=== PATIENT | female | born 1985 | race Hispanic/Latino ===

== ENCOUNTER 2019-10-17 05:46 | Inpatient (IN) ==
[2019-10-17] MEDS ORDERED: LR 2,000 ML ONE (06:28)
[2019-10-17] MEDS ORDERED: LR 500 ML IV ONE (06:33)
[2019-10-17] MEDS ORDERED: KEFZOL 1 GM/D5W 1 GM/50 ML IVPB IV PRN (06:33)
[2019-10-17] MEDS ORDERED: REGLAN PO ONE (06:33)
[2019-10-17] MEDS ORDERED: PEPCID PO ONE (06:33)
[2019-10-17] MEDS ORDERED: LR 1,000 ML IV SCH (06:45)
[2019-10-17 06:54] LABS: URINE SOURCE VOIDED
[2019-10-17 07:04] LABS: BILIRUBIN URINE NEGATIVE (NEGATIVE); BLOOD URINE MODERATE (NEGATIVE); COLOR STRAW; GLUCOSE URINE NEGATIVE (NEGATIVE); KETONE URINE NEGATIVE (NEGATIVE); LEUKOCYTES URINE MODERATE (NEGATIVE); NITRITE URINE NEGATIVE (NEGATIVE); PROTEIN URINE TRACE mg/dL (NEGATIVE); SP GRAVITY URINE 1.003; TURBIDITY URINE HAZY (CLEAR); UROBILINOGEN URINE NORMAL (NORMAL)
[2019-10-17 07:06] LABS: BASO# 0.01 X1000 (0.0-0.2); BASO% 0.1 % (0.0-0.8); EOS% 1.8 % (0.0-10.0); HEMATOCRIT 35.9 % (37.0-47.0); HEMOGLOBIN 11.6 g/dL (12.0-16.0); IMM GRAN# 0.08 X1000 (0.0-0.04); IMM GRAN% 0.7 % (0.0-0.5); LYMPH# 2.35 X1000 (1.2-3.4); LYMPH% 21.6 % (20.5-51.1); MCH 26.8 PG (27-31); MCHC 32.3 g/dL (33-37); MCV 82.9 FL (81-99); MONO# 0.75 X1000 (0.11-0.59); MONO% 6.9 % (1.7-9.3); MPV 11.5 FL (7.4-10.4); NEUT% 68.9 % (42.2-75.2); PLT 271 X1000 (130-400); RBC 4.33 XMIL (4.2-5.4); RDW 14.4 % (11.5-14.5); WBC 10.89 X1000 (4.8-10.8)
[2019-10-17] MEDS ORDERED: PITOCIN ONE (07:25)
[2019-10-17] MEDS ORDERED: SODIUM CHLORIDE 0.9% 10 ML ONE (07:26)
[2019-10-17] MEDS ORDERED: ROBINUL ONE (07:26)
[2019-10-17] MEDS ORDERED: NEO-SYNEPHRINE ONE (07:26)
[2019-10-17] MEDS ORDERED: CALCIUM CHLORIDE SYRINGE ONE (07:32)
[2019-10-17] MEDS ORDERED: EPHEDRINE ONE (07:32)
[2019-10-17] MEDS ORDERED: DEMEROL ONE ×2 (07:34→09:08)
--- NOTE | 2019-10-17 08:23 | HISTORY AND PHYSICAL ---
Laurel is a 34-year-old Peruvian speaking female who presents to the Labor and Delivery Unit as a 4, para 3-0-0-3. Her estimated date of confinement is October 30, 2019. She presents with an intrauterine of 38 and 1/7ths weeks gestation. She admits to spontaneous rupture of membranes with clear fluid at 0515 hours this morning and therefore presented to the Labor and Delivery Unit. Upon her presentation, she was examined by the nurse and she was noted to be breech. I was contacted and presented to the patient's room and performed a bedside ultrasound which identified a riley in a breech presentation. I performed an additional examination and noted the patient to have a fetus that was in an incomplete breech presentation. The patient was informed of the need for a surgical delivery. The benefits and risks were discussed with her understanding. The patient desires a tubal sterilization and has [employer] insurance per the nursing staff and therefore, a bilateral tubal sterilization can be performed. REVIEW OF SYSTEMS: : Significant for spontaneous rupture of membranes, cervical dilation is at 9 cm with the presentation of a lower extremity inside the vagina. The amniotic fluid is clear. PHYSICAL EXAMINATION: HEENT: Within normal limits. HEART: Regular rhythm and rate without murmur. LUNGS: Clear to auscultation bilaterally. ABDOMEN: Gravid, nontender. heart rate category 1, positive contractions. GENITOURINARY: Significant for cervical dilation of 8-9 cm with a lower extremity of the fetus inside the vagina. Amniotic fluid is clear. heart rate category 1. EXTREMITIES: Without cyanosis, clubbing or edema. LABORATORY RESULTS: From record, blood type is A negative and patient has received her RhoGAM injection. ASSESSMENT: 1. Intrauterine at 38 and 1/7ths weeks gestation. 2. Incomplete breech presentation. 3. Spontaneous rupture of membranes with clear fluid at 0515 this morning. 4. No significant medical history. 5. History of an appendectomy. 6. Desire for tubal sterilization. PLAN: 1. Patient will be prepared for a primary section. 2. IV. 3. Labs have been drawn. 4. The patient will be taken to the OR expediently. CC: Dr. Talha VERNON
[2019-10-17] MEDS ORDERED: PHENERGAN IV PRN (09:30)
[2019-10-17] MEDS ORDERED: NARCAN IV PRN (09:30)
[2019-10-17] MEDS ORDERED: ZOFRAN IV PRN (09:30)
[2019-10-17] MEDS ORDERED: SODIUM CHLORIDE 0.9% INJ PRN (09:30)
[2019-10-17] MEDS ORDERED: BENADRYL IV PRN (09:30)
[2019-10-17] MEDS ORDERED: MORPHINE PCA IV PRN (09:30)
[2019-10-17] MEDS ORDERED: PITOCIN 20 UNITS/NS 20 UNITS/1,000 ML IV.SOLN ONE (09:42)
[2019-10-17] MEDS ORDERED: M-M-R II VACCINE SUBQ ONE (09:48)
[2019-10-17] MEDS ORDERED: MYLICON PO PRN (09:48)
[2019-10-17] MEDS ORDERED: PHENERGAN IM PRN (09:48)
[2019-10-17] MEDS ORDERED: BOOSTRIX VACCINE IM ONE (09:48)
[2019-10-17] MEDS ORDERED: ATARAX PO PRN (09:48)
[2019-10-17] MEDS ORDERED: PITOCIN IM PRN (09:48)
[2019-10-17] MEDS ORDERED: HYDROXYZINE IM PRN (09:48)
[2019-10-17] MEDS ORDERED: PITOCIN 20 UNITS/NS 20 UNITS/1,000 ML IV.SOLN IV ONE (09:48)
[2019-10-17] MEDS ORDERED: DULCOLAX PR PRN (09:48)
[2019-10-17] MEDS ORDERED: PITOCIN 10 UNITS/NS 1,000 ML IV SCH (10:00)
[2019-10-17] MEDS: TORADOL IV SCH ×3 (10:30→23:43)
--- NOTE | 2019-10-17 14:40 | OPERATIVE NOTE ---
PROCEDURE DATE : 10/17/2019 PREOPERATIVE DIAGNOSES: 1. Intrauterine at 38 and 0/7ths weeks gestation. 2. Spontaneous rupture of membranes (clear). 3. Active labor. 4. Incomplete breech presentation. 5. Desire for permanent sterilization. 6. RH negative. POSTOPERATIVE DIAGNOSES: 1. Intrauterine at 38 and 0/7ths weeks gestation. 2. Spontaneous rupture of membranes (clear). 3. Active labor. 4. Beverly breech presentation. 5. Desire for permanent sterilization. 6. RH negative. PROCEDURE: 1. Primary low transverse section, 2. Delivery of a viable female in the beverly breech presentation. 3. Bilateral partial salpingectomy. SURGEON: Stefanie Zhong D.O. INSPECTOR RECEIVING: Everette Castle D.O. ANESTHESIA PROVIDER: Dr. Cartagena. COMPLICATIONS: None. FLUIDS: 2,000 mL. ESTIMATED BLOOD LOSS: 1000 mL. URINARY OUTPUT: 350 mL (clear). FLUIDS: Lactated Ringer's. MEDICATIONS: Ancef IV 2 grams preop. SPECIMENS: 1. Umbilical cord blood. 2. Portions of the left and right fallopian tubes. DRAINS: Felix catheter. INFORMATION: Viable female, beverly breech position. Time of delivery 0730 hours. scores 8 at one minute and 9 at fives minutes. Weight 6 pounds 14 ounces (3,110 grams). Length 19.5 inches. FINDINGS: Normal uterus, fallopian tubes and ovaries. INDICATIONS: Marco is a 34-year-old Occitan speaking female who presented to the Labor and Delivery Unit as a 4, para 3-0-0-3. Her estimated date of confinement is October 30, 2019. She presented with an intrauterine gestation at 38 and 0/7ths weeks gestation after rupturing her membranes at 05:15 hours on the morning of her presentation. The patient underwent a bedside ultrasound which identified the fetus in an incomplete breech presentation. This was confirmed during additional examination. The patient was informed of the need for a surgical delivery by section. The benefits of delivery were discussed and the risks were discussed which include but are not limited to the following: Blood loss, injury to surrounding organs, blood vessels and the fetus. The need for a blood transfusion and the associated risks of a transmission of an infection that may include hepatitis B and C, HIV, syphilis and other infections. Cardiopulmonary symptoms secondary to fluid overload and is included on the consent form. The patient and her spouse are aware that although risks are associated with the procedure, she may not experience any untoward effects from the procedure. The patient understood her risks. The patient expressed her desire for a tubal sterilization. She states that she does not nor her desire additional children. They are aware that upon receiving a tubal sterilization, it will be difficult for her to achieve a future unless done by artificial means. The patient was taken to the operating room where a spinal anesthetic was performed and found to be adequate. The patient received 2 grams of Ancef for infection prophylaxis. She was prepared and draped in the dorsal supine position with a leftward tilt. A marker was used to create a line for the proposed incision site. A Pfannenstiel skin incision was created with the scalpel. The incision was carried down to the layer of fascia with a Bovie on the cutting and coagulation settings. The fascia was incised and extended bilaterally using the Bovie on the cutting and coagulation settings. The superior aspect of the fascia was grasped with 2 Philip clamps. The underlying rectus abdominis muscles were dissected off sharply using the Bovie on the cutting setting. In a similar fashion, the inferior aspect of the fascia was grasped with the Philip clamps and the underlying rectus muscles and pyramidalis muscles were dissected off using the Bovie on the cutting setting. Hemostasis was achieved with the Bovie on the coagulation setting. The rectus abdominis muscles were in the midline down to the level of the pubic symphysis. The subcutaneous fat tissue was dissected to expose the peritoneum. The peritoneum was found to be free of adhesions and was grasped with hemostats and entered sharply using Metzenbaum scissors. The peritoneal incision was extended superiorly and inferiorly to the bladder reflection using Metzenbaum scissors. Visualization of the urinary bladder was maintained. The entrance of the pelvis was visualized. A bladder blade was inserted into the pelvis and the vesicouterine peritoneum was identified. The pelvis was surveyed and the uterus appeared to be roughly normal and the lower uterine segment was noted to be thinned out. The vesicouterine peritoneum was opened using Metzenbaum scissors and the bladder flap was developed. The bladder blade was repositioned to keep the urinary bladder out of the opposite field. The lower uterine segment was incised using a scalpel. The amniotic sac was ruptured with the scalpel and clear amniotic fluid flowed from the uterus. The uterine incision was extended with bimanual traction. The fetus was visualized in the beverly breech position. The right lower extremity was delivered followed by the left lower extremity. Care was taken to avoid injury to the fetus. A moist blue towel was wrapped around the fetus and the fetus was rotated from side to side to assist in delivering the upper extremities. Next, with gentle traction, the head was delivered through the incision. The infant was delivered at 0730 hours. The mouth and nares were suctioned with a bulb on the operative field. The umbilical cord was clamped and cut. The was handed off to the counselor/art therapist. The was assigned Apgars of 8 at one minute and 9 at five minutes. The weight of the infant is 6 pounds 14 ounces with a length of 19.5 inches. IV Pitocin was initiated to facilitate uterine contractions. The placenta was delivered intact with manual massage of the uterine fundus. The uterus was exteriorized and appeared to be grossly normal. A moist sponge was used to gently clean the inside of the uterus to remove clots and debris. The fallopian tubes and ovaries appeared to be grossly normal. The uterine incision was closed using 0 Vicryl suture in a running locked fashion. Due to slight amounts of oozing, a coagulation material was placed across the incision. The pelvis was irrigated with warm normal saline solution which was suctioned. No active bleeding was noted. Next, attention was directed to the fallopian tubes. A window was created in the right mesosalpinx. The distal end of the fallopian tube was visualized to identify the fimbriae. The distal and proximal ends of the tubes were individually ligated using 0 plain gut suture. A portion of the fallopian tube was excised with Metzenbaum scissors and placed in a specimen container to be sent to pathology for confirmation. Next, the left fallopian tube was identified and the same procedure was performed on the left fallopian tube. The portions of fallopian tube segments were placed in separate specimen containers. Good hemostasis was noted as the ends of the fallopian tubes were coagulated using the Bovie. The uterus was replaced in the pelvis. The uterine incision was reassessed and a small area of bleeding was noted that was made hemostatic using a [id number] throw of 0 Vicryl suture. Good hemostasis was noted. The peritoneum was closed with 2-0 Vicryl suture in a running fashion. The rectus abdominis muscles were reapproximated using 2-0 Vicryl suture in a continuous running fashion. The fascia was reapproximated using 0 Vicryl suture in a running fashion. The subcutaneous fat tissue was reapproximated using 3-0 chromic suture in a running fashion using a double layer. The skin was closed using 4-0 Monocryl suture in the subcuticular fashion. Mastisol and Steri-Strips were applied over the incision. A pressure dressing was applied over the Steri- Strips. The patient tolerated the procedure well. All instrument, needle and sponge counts were correct x3. The patient was taken to the recovery room in stable condition. [facility]
[2019-10-17] MEDS: MYLICON PO SCH ×3 (17:39→20:32)
[2019-10-17] MEDS: TYLENOL PO PRN (17:39)
[2019-10-17] MEDS: PERICOLACE PO SCH (20:32)
[2019-10-17] MEDS ORDERED: AMBIEN PO PRN (21:00)
[2019-10-18 05:29] LABS: BASO# 0.01 X1000 (0.0-0.2); BASO% 0.1 % (0.0-0.8); EOS# 0.04 X1000 (0.0-0.7); EOS% 0.2 % (0.0-10.0); HEMOGLOBIN 8.8 g/dL (12.0-16.0); IMM GRAN# 0.08 X1000 (0.0-0.04); IMM GRAN% 0.5 % (0.0-0.5); LYMPH# 1.63 X1000 (1.2-3.4); LYMPH% 9.6 % (20.5-51.1); MCH 27.3 PG (27-31); MCHC 32.6 g/dL (33-37); MCV 83.9 FL (81-99); MONO# 0.97 X1000 (0.11-0.59); MONO% 5.7 % (1.7-9.3); MPV 10.9 FL (7.4-10.4); NEUT# 14.17 X1000 (1.4-6.5); NEUT% 83.9 % (42.2-75.2); PLT 244 X1000 (130-400); RBC 3.22 XMIL (4.2-5.4); RDW 14.6 % (11.5-14.5)
[2019-10-18] MEDS: TORADOL IV SCH (05:58)
[2019-10-18] MEDS ORDERED: LR 1,000 ML IV SCH (09:48)
[2019-10-18] MEDS: PRECARE PO SCH ×2 (10:59→12:18)
[2019-10-18] MEDS: MYLICON PO SCH ×5 (11:00→20:01)
--- NOTE | 2019-10-18 11:23 | OB/GYN PROGRESS NOTE ---
- Gurjit Barragan was seen and is sitting up in her chair. She has ambulated with assistance. Her lochia is mild in flow. She is breast feeding her daughter. She developed one elevated temperature of 101.3 degrees and received Tylenol. On yesterday, she complained of a sore throat and felt as if she was developing a respiratory infection. Her cultures for influenza and strep are negative. A urine culture is pending. Currently, she feels well. OB Physical Exam Vital Signs - 8 hr 10/18/19 04:00 10/18/19 07:58 Temperature 98.1 F 98.4 F Pulse Rate 99 H 100 H Respiratory Rate 18 18 Blood Pressure 108/57 100/56 O2 Sat by Pulse Oximetry 98 - CONSTITUTIONAL General Appearance: appears well, alert, no apparent distress - HEAD, EARS, NOSE, MOUTH & THROAT HENMT: other (Mild B/L tonsillar enlargement) - NECK Neck: non-tender, supple, other (No lymphadenopathy) - RESPIRATORY Respiratory: lungs clear, normal breath sounds - CHEST (BREASTS) Chest/Breast: deferred - GASTROINTESTINAL (ABDOMEN) Abdominal Exam: normal bowel sounds, soft, other (firm fundus, incision is healing well in the absence of drainage, erythema and odor. Steri-strips are in place.) - MUSCULOSKELETAL Back Exam: normal inspection Extremity: non-tender, normal inspection - SKIN Integumentary: normal color - PSYCHIATRIC Psych/Mental Status: normal mood/affect, normal thought content, normal thought process Active Medications Generic Name Dose Route Start Last Admin Trade Name Freq PRN Reason Stop Dose Admin Acetaminophen 1,000 mg 10/17/19 17:26 10/17/19 17:39 Tylenol PO 1,000 mg Q6H PRN PRN Administration Fever Bisacodyl 10 mg 10/17/19 09:48 Dulcolax [place] PRN PRN gas unrelieved by Mylicon Diphenhydramine HCl 12.5 - 25 mg 10/17/19 09:30 Benadryl IV Q6H PRN PRN Itching Hydroxyzine HCl 50 mg 10/17/19 09:48 Atarax PO Q3-4H PRN PRN Nausea Hydroxyzine HCl 50 mg 10/17/19 09:48 Hydroxyzine IM Q3-4H PRN PRN Nausea Cefazolin Sodium/Dextrose 1 gm in 50 mls @ 100 mls/hr 10/17/19 06:33 10/17/19 07:00 Kefzol 1 Gm/D5w IV 100 mls/hr ONCE PRN PRN Administration section Lactated Ringer's 1,000 mls @ 125 mls/hr 10/17/19 06:45 Lr IV .Q8H KIA Lactated Ringer's 1,000 mls @ 125 mls/hr 10/18/19 09:48 Lr IV .Q8H KIA Ibuprofen 800 mg 10/17/19 09:48 Motrin PO Q8H PRN PRN Pain Morphine Sulfate 0 mg 10/17/19 09:30 10/17/19 10:35 Morphine Video Producer IV 30 mg PRN PRN Administration Pain Naloxone HCl 0.2 mg 10/17/19 09:30 Narcan IV PRN PRN DECREASED RESPIRATORY RATE Ondansetron HCl 4 mg 10/17/19 09:30 Zofran IV Q24H PRN PRN Nausea Oxycodone/Acetaminophen 1 each 10/17/19 09:48 Percocet-5 PO Q3-4H PRN PRN Pain (1-6 on Pain Scale) Oxytocin 20 unit 10/17/19 09:48 Pitocin IM PRN PRN Severe bleeding Multivit/Folic Acid/Iron 1 each 10/17/19 10:00 10/18/19 10:59 Precare PO 1 each DAILY KIA Administration Promethazine HCl 12.5 mg 10/17/19 09:30 10/17/19 09:40 Phenergan IV 12.5 mg Q6H PRN PRN Administration Nausea Promethazine HCl 25 mg 10/17/19 09:48 Phenergan IM Q3H PRN PRN Pain Senna/Docusate Sodium 1 each 10/17/19 21:00 10/17/19 20:32 Pericolace PO 1 each QHS KIA Administration Simethicone 80 mg 10/17/19 09:48 Mylicon PO PRN PRN GAS Simethicone 80 mg 10/17/19 13:00 10/18/19 11:00 Mylicon PO 80 mg PC + HS KIA Administration Sodium Chloride 10 ml 10/17/19 09:30 10/17/19 09:40 Sodium Chloride 0.9% INJ 10 ml PRN PRN Administration TO DILUTE PHENERGAN FOR IV USE Zolpidem Tartrate 10 mg 10/17/19 21:00 Ambien PO HS PRN PRN Sleep Laboratory Results - last 24 hr 10/18/19 10/18/19 04:59 04:59 WBC 16.90 H RBC 3.22 L Hgb 8.8 L D Hct 27.0 L D MCV 83.9 MCH 27.3 MCHC 32.6 L RDW Std Deviation 14.6 H Plt Count 244 MPV 10.9 H Immature Gran % (Auto) 0.5 Neut % (Auto) 83.9 H Lymph % (Auto) 9.6 L [place] % (Auto) 5.7 Eos % (Auto) 0.2 Baso % (Auto) 0.1 Immature Gran # (Auto) 0.08 H Neut # (Auto) 14.17 H Lymph # (Auto) 1.63 [place] # (Auto) 0.97 H Eos # (Auto) 0.04 Baso # (Auto) 0.01 ABO/Rh A NEGATIVE RhIG Candidate? NO Microbiology 10/17/19 17:35 Influenza Screen - Final Nasopharyngeal 10/17/19 17:35 Group A Strep Rapid Antigen - Final Throat OB Assessment & Plan (1) Delivery by section Status: Acute Plan: 1. Continue post-surgical management 2. Possible d/c on tomorrow (2) Breech delivery Status: Acute Plan: 1. s/p Primary Section (Incomplete breech converted to a Isidro leddi (3) Anemia Status: Acute Plan: Begin Ferrous (4) Rh negative status during Status: Chronic Plan: 1. is RH negative. No Rhogam requirement (5) Pyrexia of unknown origin following delivery Status: Resolved Plan: 1. Resolved w Tylenol 2. Pending results: thoat culture, urine 3. VS will be monitored
[2019-10-18] MEDS: PERCOCET-5 PO PRN ×2 (12:25→17:56)
[2019-10-18] MEDS: MOTRIN PO PRN (13:11)
[2019-10-18 14:16] LABS: BASO# 0.02 X1000 (0.0-0.2); BASO% 0.1 % (0.0-0.8); EOS# 0.04 X1000 (0.0-0.7); EOS% 0.2 % (0.0-10.0); HEMATOCRIT 27.8 % (37.0-47.0); HEMOGLOBIN 8.9 g/dL (12.0-16.0); IMM GRAN# 0.11 X1000 (0.0-0.04); IMM GRAN% 0.6 % (0.0-0.5); LYMPH# 2.05 X1000 (1.2-3.4); LYMPH% 11.4 % (20.5-51.1); MCH 27.1 PG (27-31); MCV 84.5 FL (81-99); MONO# 0.95 X1000 (0.11-0.59); MONO% 5.3 % (1.7-9.3); MPV 10.6 FL (7.4-10.4); NEUT# 14.81 X1000 (1.4-6.5); NEUT% 82.4 % (42.2-75.2); PLT 284 X1000 (130-400); RBC 3.29 XMIL (4.2-5.4); RDW 14.8 % (11.5-14.5); WBC 17.98 X1000 (4.8-10.8)
[2019-10-18 14:43] LABS: ANISOCYTOSIS 2+; BANDS 6 % (0-1); LARGE PLATELETS 1+; LYMPHS 13 % (21-51); MONO 4 % (1-9); SEGS 77 % (42-75)
--- NOTE | 2019-10-18 15:18 | OB/GYN PROGRESS NOTE ---
- Gurjit Barragan is a 34 yo Romansh-speaking HF, now , who is s/p Primary LTCS ([facility]) who has experienced her 2nd episode of pyrexia (T=101.0 F). Her 1st episode of pyrexia was on yesterday (Tmax 101.3). She was examined at the bedside and has taken a shower and states that she feels good with the exception of a scratchy throat. OB Physical Exam Vital Signs - 8 hr 10/18/19 07:58 10/18/19 12:11 10/18/19 13:14 Temperature 98.4 F 100.8 F H 101 F H Pulse Rate 100 H 98 H Respiratory Rate 18 20 Blood Pressure 100/56 119/60 O2 Sat by Pulse Oximetry 98 99 10/18/19 14:10 10/18/19 15:08 Temperature 98.5 F 97.7 F Pulse Rate 105 H 95 H Respiratory Rate 20 20 Blood Pressure 102/57 103/58 O2 Sat by Pulse Oximetry 98 - CONSTITUTIONAL General Appearance: appears well, alert, no apparent distress - HEAD, EARS, NOSE, MOUTH & THROAT HENMT: pharyngeal erythema - NECK Neck: non-tender, supple, other (no lymphadenopathy) - RESPIRATORY Respiratory: lungs clear, normal breath sounds - CARDIOVASCULAR Cardiovascular: regular rate, rhythm - CHEST (BREASTS) Chest/Breast: no tenderness, other (soft to palpation) - GASTROINTESTINAL (ABDOMEN) Abdominal Exam: normal bowel sounds, other (appropriate tenderness; incision is healing well without infection) - MUSCULOSKELETAL Back Exam: normal inspection Extremity: no calf tenderness - SKIN Integumentary: normal color, warm/dry - PSYCHIATRIC Psych/Mental Status: normal mood/affect Active Medications Generic Name Dose Route Start Last Admin Trade Name Freq PRN Reason Stop Dose Admin Acetaminophen 1,000 mg 10/17/19 17:26 10/17/19 17:39 Tylenol PO 1,000 mg Q6H PRN PRN Administration Fever Bisacodyl 10 mg 10/17/19 09:48 Dulcolax [place] PRN PRN gas unrelieved by Mylicon Diphenhydramine HCl 12.5 - 25 mg 10/17/19 09:30 Benadryl IV Q6H PRN PRN Itching Hydroxyzine HCl 50 mg 10/17/19 09:48 Atarax PO Q3-4H PRN PRN Nausea Hydroxyzine HCl 50 mg 10/17/19 09:48 Hydroxyzine IM Q3-4H PRN PRN Nausea Cefazolin Sodium/Dextrose 1 gm in 50 mls @ 100 mls/hr 10/17/19 06:33 10/17/19 07:00 Kefzol 1 Gm/D5w IV 100 mls/hr ONCE PRN PRN Administration section Lactated Ringer's 1,000 mls @ 125 mls/hr 10/17/19 06:45 Lr IV .Q8H [facility] Lactated Ringer's 1,000 mls @ 125 mls/hr 10/18/19 09:48 Lr IV .Q8H [facility] Ceftriaxone Sodium 1 gm/ 50 mls @ 100 mls/hr 10/18/19 15:15 Sodium Chloride IV Q24H [facility] Ibuprofen 800 mg 10/17/19 09:48 10/18/19 13:11 Motrin PO 800 mg Q8H PRN PRN Administration Pain Morphine Sulfate 0 mg 10/17/19 09:30 10/17/19 10:35 Morphine Leaf Coverer IV 30 mg PRN PRN Administration Pain Naloxone HCl 0.2 mg 10/17/19 09:30 Narcan IV PRN PRN DECREASED RESPIRATORY RATE Ondansetron HCl 4 mg 10/17/19 09:30 Zofran IV Q24H PRN PRN Nausea Oxycodone/Acetaminophen 1 each 10/17/19 09:48 10/18/19 12:25 Percocet-5 PO 1 each Q3-4H PRN PRN Administration Pain (1-6 on Pain Scale) Oxytocin 20 unit 10/17/19 09:48 Pitocin IM PRN PRN Severe bleeding Multivit/Folic Acid/Iron 1 each 10/17/19 10:00 10/18/19 12:18 Precare PO Not Given DAILY [facility] Promethazine HCl 12.5 mg 10/17/19 09:30 10/17/19 09:40 Phenergan IV 12.5 mg Q6H PRN PRN Administration Nausea Promethazine HCl 25 mg 10/17/19 09:48 Phenergan IM Q3H PRN PRN Pain Senna/Docusate Sodium 1 each 10/17/19 21:00 10/17/19 20:32 Pericolace PO 1 each QHS KIA Administration Simethicone 80 mg 10/17/19 09:48 Mylicon PO PRN PRN GAS Simethicone 80 mg 10/17/19 13:00 10/18/19 13:12 Mylicon PO 80 mg PC + HS KIA Administration Sodium Chloride 10 ml 10/17/19 09:30 10/17/19 09:40 Sodium Chloride 0.9% INJ 10 ml PRN PRN Administration TO DILUTE PHENERGAN FOR IV USE Zolpidem Tartrate 10 mg 10/17/19 21:00 Ambien PO HS PRN PRN Sleep Laboratory Results - last 24 hr 10/18/19 10/18/19 10/18/19 04:59 04:59 14:05 WBC 16.90 H 17.98 H RBC 3.22 L 3.29 L Hgb 8.8 L D 8.9 L Hct 27.0 L D 27.8 L MCV 83.9 84.5 MCH 27.3 27.1 MCHC 32.6 L 32.0 L RDW Std Deviation 14.6 H 14.8 H Plt Count 244 284 MPV 10.9 H 10.6 H Immature Gran % (Auto) 0.5 0.6 H Neut % (Auto) 83.9 H 82.4 H Lymph % (Auto) 9.6 L 11.4 L [place] % (Auto) 5.7 5.3 Eos % (Auto) 0.2 0.2 Baso % (Auto) 0.1 0.1 Immature Gran # (Auto) 0.08 H 0.11 H Neut # (Auto) 14.17 H 14.81 H Lymph # (Auto) 1.63 2.05 [place] # (Auto) 0.97 H 0.95 H Eos # (Auto) 0.04 0.04 Baso # (Auto) 0.01 0.02 Segmented Neutrophils 77 H Band Neutrophils 6 H Lymphocytes 13 L Monocytes 4 Large Platelets 1+ Anisocytosis 2+ ABO/Rh A NEGATIVE RhIG Candidate? NO Microbiology 10/17/19 18:10 Urine Culture - Preliminary Urine,Catheterized NO GROWTH 10/17/19 17:35 Influenza Screen - Final Nasopharyngeal 10/17/19 17:35 Group A Strep Rapid Antigen - Final Throat OB Assessment & Plan (1) Delivery by section Status: Acute Plan: s/p Primary C/S & recovering well (2) Anemia Status: Acute Plan: On Fe2+ supplementation (3) Pyrexia of unknown origin following delivery Status: Acute Plan: 1. Tylenol PRN 2. IV Rocephin 1 gm Q24hrs 3. Con't to monitor VS (4) Pharyngitis Status: Acute Plan: Will order Chloraseptic spray for pharyngeal discomfort
[2019-10-18] MEDS ORDERED: NS 250 ML IV SCH (15:45)
[2019-10-18] MEDS: ROCEPHIN 1 GM in NS 50 ML IV SCH (16:10)
[2019-10-18] MEDS: PERICOLACE PO SCH ×2 (19:52→20:01)
[2019-10-19] MEDS: TYLENOL PO PRN (00:01)
[2019-10-19] MEDS: MOTRIN PO PRN ×3 (01:24→23:06)
[2019-10-19] MEDS: PERCOCET-5 PO PRN ×3 (01:24→23:06)
--- NOTE | 2019-10-19 08:26 | OB/GYN PROGRESS NOTE ---
- Subjective Pt seen and examined. Currently w/o complaints. Ambulating and urinating w/o difficulty. Tolerating regular diet. Denies N/V/fevers. Last Temp 101 at 13:00 yesterday. + Flatus denies BM, Bottle and breast feeding OB Physical Exam Vital Signs - 8 hr 10/19/19 05:49 Temperature 96.4 F L - CONSTITUTIONAL General Appearance: appears well, alert, no apparent distress - RESPIRATORY Respiratory: lungs clear, normal breath sounds - CARDIOVASCULAR Cardiovascular: regular rate, rhythm - GASTROINTESTINAL (ABDOMEN) Abdominal Exam: non tender (FF below umbilicus), soft - MUSCULOSKELETAL Extremity: non-tender, no calf tenderness - SKIN Integumentary: normal color, warm/dry (Incision : c/d/i) Active Medications Generic Name Dose Route Start Last Admin Trade Name Freq PRN Reason Stop Dose Admin Acetaminophen 1,000 mg 10/17/19 17:26 10/19/19 00:01 Tylenol PO 1,000 mg Q6H PRN PRN Administration Fever Bisacodyl 10 mg 10/17/19 09:48 Dulcolax [place] PRN PRN gas unrelieved by Mylicon Diphenhydramine HCl 12.5 - 25 mg 10/17/19 09:30 Benadryl IV Q6H PRN PRN Itching Hydroxyzine HCl 50 mg 10/17/19 09:48 Atarax PO Q3-4H PRN PRN Nausea Hydroxyzine HCl 50 mg 10/17/19 09:48 Hydroxyzine IM Q3-4H PRN PRN Nausea Cefazolin Sodium/Dextrose 1 gm in 50 mls @ 100 mls/hr 10/17/19 06:33 10/17/19 07:00 Kefzol 1 Gm/D5w IV 100 mls/hr ONCE PRN PRN Administration section Lactated Ringer's 1,000 mls @ 125 mls/hr 10/17/19 06:45 Lr IV .Q8H KIA Lactated Ringer's 1,000 mls @ 125 mls/hr 10/18/19 09:48 Lr IV .Q8H KIA Ceftriaxone Sodium 1 gm/ 50 mls @ 100 mls/hr 10/18/19 15:15 10/18/19 16:10 Sodium Chloride IV 100 mls/hr Q24H KIA Administration Sodium Chloride 250 mls @ 0 mls/hr 10/18/19 15:45 10/18/19 16:10 Ns IV 125 mls/hr .Q0M KIA Administration As Directed Ibuprofen 800 mg 10/17/19 09:48 10/19/19 01:24 Motrin PO 800 mg Q8H PRN PRN Administration Pain Morphine Sulfate 0 mg 10/17/19 09:30 10/17/19 10:35 Morphine [employer] IV 30 mg PRN PRN Administration Pain Naloxone HCl 0.2 mg 10/17/19 09:30 Narcan IV PRN PRN DECREASED RESPIRATORY RATE Ondansetron HCl 4 mg 10/17/19 09:30 Zofran IV Q24H PRN PRN Nausea Oxycodone/Acetaminophen 1 each 10/17/19 09:48 10/19/19 05:47 Percocet-5 PO 1 each Q3-4H PRN PRN Administration Pain (1-6 on Pain Scale) Oxytocin 20 unit 10/17/19 09:48 Pitocin IM PRN PRN Severe bleeding Multivit/Folic Acid/Iron 1 each 10/17/19 10:00 10/18/19 12:18 Precare PO Not Given DAILY KIA Promethazine HCl 12.5 mg 10/17/19 09:30 10/17/19 09:40 Phenergan IV 12.5 mg Q6H PRN PRN Administration Nausea Promethazine HCl 25 mg 10/17/19 09:48 Phenergan IM Q3H PRN PRN Pain Senna/Docusate Sodium 1 each 10/17/19 21:00 10/18/19 20:01 Pericolace PO Not Given QHS KIA Simethicone 80 mg 10/17/19 09:48 Mylicon PO PRN PRN GAS Simethicone 80 mg 10/17/19 13:00 10/18/19 20:01 Mylicon PO Not Given PC + HS KIA Sodium Chloride 10 ml 10/17/19 09:30 10/17/19 09:40 Sodium Chloride 0.9% INJ 10 ml PRN PRN Administration TO DILUTE PHENERGAN FOR IV USE Zolpidem Tartrate 10 mg 10/17/19 21:00 Ambien PO HS PRN PRN Sleep 10/17/19 17:35 Throat Culture - Final Throat NO GROUP A STREP ISOLATED 10/17/19 18:10 Urine Culture - Final Urine,Catheterized NO GROWTH Laboratory Results - last 24 hr 10/18/19 10/18/19 04:59 14:05 WBC 17.98 H RBC 3.29 L Hgb 8.9 L Hct 27.8 L MCV 84.5 MCH 27.1 MCHC 32.0 L RDW Std Deviation 14.8 H Plt Count 284 MPV 10.6 H Immature Gran % (Auto) 0.6 H Neut % (Auto) 82.4 H Lymph % (Auto) 11.4 L Garza % (Auto) 5.3 Eos % (Auto) 0.2 Baso % (Auto) 0.1 Immature Gran # (Auto) 0.11 H Neut # (Auto) 14.81 H Lymph # (Auto) 2.05 Garza # (Auto) 0.95 H Eos # (Auto) 0.04 Baso # (Auto) 0.02 Segmented Neutrophils 77 H Band Neutrophils 6 H Lymphocytes 13 L Monocytes 4 Large Platelets 1+ Anisocytosis 2+ ABO/Rh A NEGATIVE RhIG Candidate? NO Microbiology 10/17/19 17:35 Throat Culture - Final Throat NO GROUP A STREP ISOLATED 10/17/19 18:10 Urine Culture - Final Urine,Catheterized NO GROWTH 10/18/19 14:05 Blood Culture - Preliminary Blood 10/18/19 14:07 Blood Culture - Preliminary Blood OB Assessment & Plan (1) Delivery by section Status: Acute Plan: -Continue PP care -OOB to ambulation -regular diet -Pain well controlled on PO pain meds -Plan for d/c home tomorrow
[2019-10-19] MEDS: PRECARE PO SCH (08:46)
[2019-10-19] MEDS: MYLICON PO SCH ×5 (08:46→20:41)
[2019-10-19] MEDS ORDERED: CHLORASEPTIC SPRAY MT PRN (11:42)
[2019-10-19 13:01] LABS: BASO# 0.02 X1000 (0.0-0.2); BASO% 0.1 % (0.0-0.8); EOS# 0.28 X1000 (0.0-0.7); HEMATOCRIT 26.5 % (37.0-47.0); HEMOGLOBIN 8.5 g/dL (12.0-16.0); IMM GRAN# 0.06 X1000 (0.0-0.04); IMM GRAN% 0.4 % (0.0-0.5); LYMPH# 2.99 X1000 (1.2-3.4); MCH 27.3 PG (27-31); MCHC 32.1 g/dL (33-37); MCV 85.2 FL (81-99); MONO# 0.93 X1000 (0.11-0.59); MONO% 6.5 % (1.7-9.3); NEUT# 9.97 X1000 (1.4-6.5); PLT 290 X1000 (130-400); RBC 3.11 XMIL (4.2-5.4); RDW 14.8 % (11.5-14.5); WBC 14.25 X1000 (4.8-10.8)
[2019-10-19] MEDS: ROCEPHIN 1 GM in NS 50 ML IV SCH (16:44)
[2019-10-19] MEDS: PERICOLACE PO SCH ×2 (17:37→20:40)
[2019-10-20 07:59] VITALS: BP 110/65
[2019-10-20] MEDS: MOTRIN PO PRN (09:13)
[2019-10-20] MEDS: PRECARE PO SCH (09:13)
[2019-10-20] MEDS: MYLICON PO SCH (09:14)
[2019-10-20] MEDS ORDERED: M-M-R II VACCINE SUBQ ONE (09:15)
[2019-10-20] MEDS: PERCOCET-5 PO PRN (11:38)
== END 2019-10-20 12:45 | disposition home or self-care (01) | DRG 784 ==
LOC: OPLD 05:46 → LD 05:47
PROVIDERS: ADMIT Obstetrics & Gynecology; ATTEND Obstetrics & Gynecology